=== PATIENT | male | born 1955 | race Caucasian/White ===

== ENCOUNTER 2021-02-19 09:58 | Emergency (ER) | payer MEDICARE, OTHER, SELFPAY ==
--- NOTE | 2021-02-19 09:59 | DI.US.S_ITS ---
PROCEDURE: US SCROTUM INDICATIONS: LARGE TESTICLE POST TRAUMA. COVID POSITIVE. TECHNIQUE: Real-time scanning was performed of the scrotum and testicles, with image documentation. Color and pulse Doppler interrogation was performed of both testicles. COMPARISON: None. FINDINGS: Right: Testicle is normal in size at 4.2 x 2.6 x 2.4 cm, and homogenous in echotexture. Epididymis is normal in overall size and morphology. No hydrocele or varicoceles. Overlying scrotal skin is normal in thickness. There is a large 5.7 x 4.6 x 2.8 cm cyst in the right scrotal sac separate from the scrotal contents with single thin septation Left: Testicle is normal in size at 4.1 x 3.4 x 2.0 cm, and homogeneous in echotexture. Epididymis is normal in overall size and morphology. No hydrocele or varicoceles. Overlying scrotal skin is normal in thickness. Doppler: Color and pulse Doppler demonstrate normal and symmetric arterial flow in both testicles. IMPRESSION: 1. Large right extratesticular septated cyst. Differential possibilities include sequelae of trauma such as old hematocele or spermatocele 2. No evidence of testicular injury or torsion Approved by: Ravi Thakkar M.D. on 02/19/2021 at 10:36
[2021-02-19 10:00] VITALS: BP 166/98; PULSE 77; RESP 15; TEMP 37; O2SAT 95; BMI 39.1
--- NOTE | 2021-02-19 10:06 | ED.GENADULT ---
HPI - General Adult General Chief complaint: Urogenital-Male Stated complaint: Enlarged Testicle. sent by [employer] Time Seen by Provider: 02/19/21 09:59 Source: patient Mode of arrival: Ambulatory History of Present Illness HPI narrative: Patient is a 65-year-old male who was sent to the emergency department by walk-in clinic for evaluation of a swollen right testicle. He thinks that the testicles been swollen for the past couple weeks. He also is COVID positive. Denies any urinary symptoms. No trauma. Is circumcised. No fevers. No abdominal pain. Related Data Home Medications Medication Instructions Recorded Confirmed albuterol sulfate 90 mcg/actuation INH PRN PRN #0 04/29/17 aerosol inhaler (Ventolin HFA) aspirin 81 mg tablet,delayed 81 mg PO QDAY #0 04/29/17 release carvedilol 25 mg tablet (Coreg) 25 mg PO BID #0 04/29/17 lisinopril 40 mg tablet 40 mg PO QDAY #0 04/29/17 loratadine 10 mg tablet 10 mg PO QPM #0 04/29/17 rosuvastatin 10 mg tablet (Crestor) 10 mg PO HS #0 04/29/17 Previous Rx's Medication Instructions Recorded diazepam 5 mg tablet (Valium) 5 mg PO Q8HP PRN #10 tab 04/29/17 meloxicam 7.5 mg tablet (Mobic) 7.5 mg PO BIDCC PRN #15 tab 04/29/17 Allergies Allergy/AdvReac Type Severity Reaction Status Date / Time hydrocodone [HYDROCODONE] Allergy Unknown Verified 02/19/21 10:04 No Known Drug Allergies Allergy Unknown Verified 02/19/21 10:04 [NO KNOWN DRUG ALLERGIES] Review of Systems Gastrointestinal Gastrointestinal: Reports system reviewed and no additional complaints, except as documented Genitourinary Genitourinary: Reports system reviewed and no additional complaints, except as documented and Reports as per HPI Integumentary/Breasts Skin/Breast: Reports system reviewed and no additional complaints, except as documented Hematologic/Lymphatic On Anticoagulants: No Patient History Medical History Chest pain Hyperglycemia 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 Social History Smoking Status: Unknown if ever smoked Smoking Status: Unknown if ever smoked alcohol intake frequency: 0-2 drinks per day Substance Use Type: does not use Exam Initial Vital Signs Initial Vital Signs: Vital Signs Temperature 98.6 F 02/19/21 10:00 Pulse Rate 77 02/19/21 10:00 Respiratory Rate 15 02/19/21 10:00 Blood Pressure 166/98 H 02/19/21 10:00 Pulse Oximetry 95 02/19/21 10:00 HENMT Head: normal to inspection and normocephalic GI Inspection: normal to inspection and non-distended Palpation: No tender Other: Circumcised, left testicle unremarkable, right testicle is enlarged however is not tender. Normal lie. Positive cremasteric reflex bilaterally. Skin General: no rashes or lesions noted Neuro General: patient alert, patient awake and moves all extremities Extrem General: capillary refill normal Course Orders Ordered: ED Orders 02/19/21 09:59 US scrotum Stat Vital Signs Vital signs: Vital Signs - 8 hr 02/19/21 10:00 Temperature 98.6 F Pulse Rate 77 Respiratory Rate 15 Blood Pressure 166/98 H Pulse Oximetry 95 Medical Decision Making Imaging Data Scrotal ultrasound: Radiologist's Impression: [place] [address] Ultrasound Report Signed Patient: Alen Buenrostro MR#: [id number] : 1955 Acct:[id number] Age/Sex: 65 / M Date of Service: 02/19/21 Loc: ED Accession Number: [id number] ?? Procedure: US scrotum Ordering Provider: Jesus Alberto Murphy D.O. PROCEDURE:? US SCROTUM ? INDICATIONS:? LARGE TESTICLE POST TRAUMA. COVID POSITIVE. ? TECHNIQUE:? Real-time scanning was performed of the scrotum and testicles, with image documentation.? Color and pulse Doppler interrogation was performed of both testicles.? ? COMPARISON:? None. ? FINDINGS:? ? Right:? Testicle is normal in size at 4.2 x 2.6 x 2.4 cm, and homogenous in echotexture.? Epididymis is normal in overall size and morphology.? No hydrocele or varicoceles.? Overlying scrotal skin is normal in thickness.? ? There is a large 5.7 x 4.6 x 2.8 cm cyst in the right scrotal sac separate from the scrotal contents with single thin septation ? Left:? Testicle is normal in size at 4.1 x 3.4 x 2.0 cm, and homogeneous in echotexture.? Epididymis is normal in overall size and morphology.? No hydrocele or varicoceles.? Overlying scrotal skin is normal in thickness.? ? Doppler:? Color and pulse Doppler demonstrate normal and symmetric arterial flow in both testicles.? ? IMPRESSION:? ? 1. Large right extratesticular septated cyst.? Differential possibilities include sequelae of trauma such as old hematocele or spermatocele ? 2. No evidence of testicular injury or torsion ? ? Approved by: Ravi Thakkar M.D. on 02/19/2021 at 10:36? MDM Narrative Medical decision making narrative: The ultrasound shows what appears to be a cyst in the right hemiscrotum. This does fit with his clinical presentation. No indication for antibiotics. Patient states that the cyst has improved since its initial onset however the plan will be is to have him follow-up with urology. He was given return precautions and follow-up instructions. He expressed understanding and agreement. Discharge Plan Departure Patient Disposition: Home Clinical Impression: Scrotal cyst Activity Restrictions/Additional Instructions: I do recommend that you contact the Urology Department at the number provided below for a follow-up. Continue to quarantine herself because of your COVID diagnosis. Return to the emergency department for any new or worsening symptoms Prescriptions: No Action loratadine 10 MG tablet 10 mg PO QPM Qty: 0 0RF albuterol sulfate [Ventolin HFA] 90 MCG/PUFF HFA aerosol inhaler INH PRN PRNQty: 0 0RF carvedilol [Coreg] 25 MG tablet 25 mg PO BID Qty: 0 0RF aspirin 81 MG tablet,delayed release (DR/EC) 81 mg PO QDAY Qty: 0 0RF lisinopril 40 MG tablet 40 mg PO QDAY Qty: 0 0RF rosuvastatin [Crestor] 10 MG tablet 10 mg PO HS Qty: 0 0RF meloxicam [Mobic] 7.5 MG tablet 7.5 mg PO BIDCC PRNQty: 15 0RF diazepam [Valium] 5 MG tablet 5 mg PO Q8HP PRNQty: 10 0RF Referrals: Arturo Franklin MD [Primary Care Provider] - Angeles Marin MD [Physician] -
[2021-02-19 12:21] VITALS: BP 166/95; PULSE 78; RESP 16; O2SAT 96
[2021-02-19 12:22] VITALS: BP 168/98; PULSE 75; RESP 18; O2SAT 95
== END 2021-02-19 12:23 | disposition home or self-care (01) ==
PROVIDERS: Emergency Provider Emergency Medicine
DX: L72.9 Follicular cyst of the skin and subcutaneous tissue, unspecified (principal)
CPT/HCPCS: 76870; 99281; 99283

== ENCOUNTER 2021-02-22 06:51 | Emergency (ER) | payer MEDICARE, OTHER, SELFPAY ==
[2021-02-22 07:04] VITALS: BP 116/74; PULSE 74; RESP 18; TEMP 37.2; O2SAT 97; BMI 30.2
--- NOTE | 2021-02-22 07:13 | ED.NAVMDI ---
HPI - Nausea/Vomiting/Diarrhea General Chief complaint: Nausea/Vomiting/Diarrhea Stated complaint: covid+ dehydrated/dry heaves Time Seen by Provider: 02/22/21 07:08 History of Present Illness HPI Narrative: 65-year-old male nonsmoker with history of hypertension and hyperlipidemia presents with a chief complaint dehydration with dry heaves for the past few days. He has been unable to keep anything down and has now become dizzy, weak and fatigued. He started developing subjective fevers and chills along with nausea and vomiting on and by Thursday had taken a COVID test which was positive. He was vaccinated with [employer] but is yet to have his booster Related Data Home Medications Medication Instructions Recorded Confirmed albuterol sulfate 90 mcg/actuation INH PRN PRN #0 04/29/17 aerosol inhaler (Ventolin HFA) aspirin 81 mg tablet,delayed 81 mg PO QDAY #0 04/29/17 release carvedilol 25 mg tablet (Coreg) 25 mg PO BID #0 04/29/17 lisinopril 40 mg tablet 40 mg PO QDAY #0 04/29/17 loratadine 10 mg tablet 10 mg PO QPM #0 04/29/17 rosuvastatin 10 mg tablet (Crestor) 10 mg PO HS #0 04/29/17 Previous Rx's Medication Instructions Recorded diazepam 5 mg tablet (Valium) 5 mg PO Q8HP PRN #10 tab 04/29/17 meloxicam 7.5 mg tablet (Mobic) 7.5 mg PO BIDCC PRN #15 tab 04/29/17 ondansetron 4 mg disintegrating 4 mg PO TID-QID PRN #10 tab 02/22/21 tablet Allergies Allergy/AdvReac Type Severity Reaction Status Date / Time hydrocodone [HYDROCODONE] Allergy Unknown Verified 02/19/21 10:04 No Known Drug Allergies Allergy Unknown Verified 02/19/21 10:04 [NO KNOWN DRUG ALLERGIES] Review of Systems Review of Systems Narrative: GENERAL: See HPI. HEENT: Denies sinus pain, ear pain, sore throat, difficulty swallowing, dizziness. RESPIRATORY: Denies dyspnea, cough, wheezing, hemoptysis, sputum. CARDIOVASCULAR: Denies chest pain, palpitations, orthopnea, edema, GASTROINTESTINAL: See HPI : Denies dysuria, frequency, incontinence, hematuria, urinary retention. MUSCULOSKELETAL: denies weakness, joint pain, or bony pain SKIN: Denies rash, skin lesions, or other NEUROLOGIC: Denies weakness, headache, numbness, change in speech, confusion, seizures, incoordination. PSYCHIATRIC: No concerning psychosocial issues. 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 Well-developed patient, in mild distress. HEAD: Atraumatic. Normocephalic. EYES: Pupils equal round and reactive. Extraocular motions intact. No scleral icterus. No injection or drainage. ENT: Moist mucous membranes, Nose without bleeding, purulent drainage. Throat without erythema, tonsillar hypertrophy or exudate. Airway patent. NECK: Trachea midline. Non tender CARDIOVASCULAR: Regular rate and rhythm without murmurs, gallops, or rubs. RESPIRATORY: Clear to auscultation. Breath sounds equal bilaterally. No wheezes, rales, or rhonchi. Of breathing, use of accessory muscles, or hypoxemia GASTROINTESTINAL: Abdomen soft, non-tender, nondistended. EXTREMITIES: No edema or joint tenderness. BACK: Nontender without deformity or crepitance. No flank tenderness. NEURO: AOx3. SKIN: Poor skin turgor, No rash or erythema of visible areas Initial Vital Signs Initial Vital Signs: Vital Signs Temperature 99 F 02/22/21 07:04 Pulse Rate 74 02/22/21 07:04 Respiratory Rate 18 02/22/21 07:04 Blood Pressure 116/74 02/22/21 07:04 Pulse Oximetry 97 02/22/21 07:04 Course Orders Ordered: Discontinued Medications Sodium Chloride (Normal Saline 0.9%) 1,000 mls @ 1,000 mls/hr IV BOLUS ONE Stop: 02/22/21 08:12 Last Infusion: 02/22/21 08:45 Dose: 0 mls/hr Documented by: Admin: 02/22/21 07:22 Dose: 1,000 mls/hr Documented by: VU Sodium Chloride (Normal Saline 0.9%) 1,000 mls @ 1,000 mls/hr IV BOLUS PRN PRN Reason: Fluid replacement Last Infusion: 02/22/21 09:19 Dose: 0 mls/hr Documented by: Admin: 02/22/21 08:15 Dose: 1,000 mls/hr Documented by: VU Ondansetron HCl (Ondansetron 4 Mg/2 Ml Inj) 4 mg IV NOW ONE Stop: 02/22/21 07:14 Last Admin: 02/22/21 07:26 Dose: 4 mg Documented by: VU Pantoprazole Sodium (Pantoprazole 40 Mg Vial) 40 mg IV NOW ONE Stop: 02/22/21 07:14 Last Admin: 02/22/21 07:26 Dose: 40 mg Documented by: VU Reevaluation(s) Reevaluation #1: Patient already feeling better after above-stated therapies Time: 08:11 Vital Signs Vital signs: Vital Signs - 8 hr 02/22/21 08:46 02/22/21 08:48 02/22/21 09:00 Pulse Rate 76 73 71 Respiratory Rate 18 18 Blood Pressure 114/62 103/63 Pulse Oximetry 97 96 96 02/22/21 09:30 Pulse Rate 71 Respiratory Rate 17 Blood Pressure 105/60 Pulse Oximetry 96 MDM - Nausea/Vomiting/Diarrhea Lab Data Result diagrams: 02/22/21 07:10 02/22/21 07:10 Labs: Lab Results 02/22/21 02/22/21 Range/Units 07:10 07:10 WBC 4.0 L (4.5-11.0) X10^3/uL RBC 5.23 (4.5-5.9) X10^6/uL Hgb 16.1 (13.5-17.5) g/dL Hct 46.0 (41-53) % MCV 87.9 (80-100) fL MCH 30.8 (26-34) PG MCHC 35.1 (30-36) % RDW 13.4 (11.6-14.8) % Plt Count 99 L (150-400) X10^3/uL Neut % (Auto) 75.7 H (50-75) % Lymph % (Auto) 14.2 L (25-40) % [place] % (Auto) 9.8 (3-14) % Eos % (Auto) 0.0 L (2-4) % Baso % (Auto) 0.3 (0-2) % Neut # (Auto) 3000 (6491-7782) /uL Lymph # (Auto) 600 L (1070-4669) /uL [place] # (Auto) 400 (0-900) /uL Eos # (Auto) 0 (0-450) /uL Baso # (Auto) 0 (0-100) /uL Sodium 127 L (137-145) mmol/L Potassium 4.0 (3.4-5.1) mmol/L Chloride 99 (98-107) mmol/L Carbon Dioxide 22 (22-32) mmol/L BUN 16 (9-20) mg/dL Creatinine 0.87 (0.66-1.25) mg/dL Estimated GFR > 60.0 (>60) mL/min BUN/Creatinine Ratio 18.4 (6-22) Glucose 126 H (80-110) mg/dL Calcium 8.8 (8.4-10.2) mg/dL Magnesium 2.1 (1.6-2.3) mg/dL Total Bilirubin 0.8 (0.2-1.3) mg/dL AST 39 (17-59) IU/L ALT 39 (<50) IU/L Alkaline Phosphatase 47 (38-126) U/L Total Protein 7.3 (6.3-8.2) g/dL Albumin 4.1 (3.5-5.0) g/dL Globulin 3.2 (1.7-4.1) g/dL Albumin/Globulin Ratio 1.3 (1.0-2.8) MDM Narrative Medical decision making narrative: Patient with reassuring history and physical. He feels much better after fluids and other above-stated therapies. He is COVID positive but demonstrates no increased work of breathing, hypoxemia or need for admission. He has been given return precautions and questions have been answered to his apparent satisfaction Discharge Plan Departure Patient Disposition: Home Clinical Impression: COVID-19, Vomiting Instructions: DI for Vomiting -- Adult, DI for COVID-19 (Suspected or Confirmed ) Activity Restrictions/Additional Instructions: *You have been diagnosed with [ COVID-19] *What to do: * per recommendations from the CDC and the [facility] Department of Health * stay home except to get medical care. Restrict activities outside your home, except for getting medical care. Do not go to work, school, or public areas. Avoid using public transportation, ride sharing, or taxis. * separate yourself from other people in your home. * call ahead before visiting your doctor * Wear a facemask * Cover your coughs and sneezes * Clean your hands often * Avoid sharing household items * Clean all high-touch services every day * Monitor your symptoms and seek prompt medical attention if your illness is worsening, particularly with difficulty in breathing. You may discontinue your isolation when: 1. You have been fever-free for at least 24 hours without the use of fever reducing medication, AND 2. Your symptoms are getting better 3. At least 10 days have passed since symptoms first appeared Individuals with laboratory confirmed COVID-19 who have not had any symptoms may discontinue home isolation when at least 10 days have passed since the date of their first COVID-19 diagnostic test and have had no subsequent illness Regarding the nausea and vomiting component of your symptoms. We would recommend you employed a clear liquid diet for the next 24-48 hours and then advance slowly as tolerated. Consider starting with a BRAT Diet (bananas, rice, apples, toast). Prescriptions: New ondansetron 4 mg tablet,disintegrating 4 mg PO TID-QID PRN (Reason: nausea and vomiting) Qty: 10 0RF No Action loratadine 10 MG tablet 10 mg PO QPM Qty: 0 0RF albuterol sulfate [Ventolin HFA] 90 MCG/PUFF HFA aerosol inhaler INH PRN PRNQty: 0 0RF carvedilol [Coreg] 25 MG tablet 25 mg PO BID Qty: 0 0RF aspirin 81 MG tablet,delayed release (DR/EC) 81 mg PO QDAY Qty: 0 0RF lisinopril 40 MG tablet 40 mg PO QDAY Qty: 0 0RF rosuvastatin [Crestor] 10 MG tablet 10 mg PO HS Qty: 0 0RF meloxicam [Mobic] 7.5 MG tablet 7.5 mg PO BIDCC PRNQty: 15 0RF diazepam [Valium] 5 MG tablet 5 mg PO Q8HP PRNQty: 10 0RF Referrals: Chaya Douglas PA-C [Primary Care Provider] -
[2021-02-22] MEDS: SODIUM CHLORIDE 0.9% 1,000 ML 1000 ML IV ×2 (07:22→08:15)
[2021-02-22] MEDS: ONDANSETRON 4 MG/2 ML INJ IV (07:26)
[2021-02-22] MEDS: PANTOPRAZOLE 40 MG VIAL IV (07:26)
[2021-02-22 07:34] LABS: Add Manual Diff / Slide Review NO; Basophils Absolute Auto 0 /uL (0-100); Basophils Percent Auto 0.3 % (0-2); Eosinophils Absolute Auto 0 /uL (0-450); Hemoglobin 16.1 g/dL (13.5-17.5); Lymphocytes Absolute Auto 600 /uL (1100-4500); Lymphocytes Percent Auto 14.2 % (25-40); Mean Corpuscular HGB Conc 35.1 % (30-36); Mean Corpuscular Hemoglobin 30.8 PG (26-34); Mean Corpuscular Volume 87.9 fL (80-100); Monocytes Absolute Auto 400 /uL (0-900); Monocytes Percent Auto 9.8 % (3-14); Neutrophils Absolute Auto 3000 /uL (1500-7000); Neutrophils Percent Auto 75.7 % (50-75); Platelet Count 99 X10^3/uL (150-400); Red Blood Cell Count 5.23 X10^6/uL (4.5-5.9); Red Cell Distribution Width 13.4 % (11.6-14.8)
[2021-02-22 07:42] LABS: Alanine Aminotransferase 39 IU/L (<50); Albumin 4.1 g/dL (3.5-5.0); Albumin Globulin Ratio 1.3 (1.0-2.8); Alkaline Phosphatase 47 U/L (38-126); Aspartate Aminotransferase 39 IU/L (17-59); BUN Creatinine Ratio 18.4 (6-22); Bilirubin Total 0.8 mg/dL (0.2-1.3); Blood Urea Nitrogen 16 mg/dL (9-20); Calcium 8.8 mg/dL (8.4-10.2); Carbon Dioxide 22 mmol/L (22-32); Chloride 99 mmol/L (98-107); Estimated Glomerular Filt Rate > 60.0 mL/min (>60); Globulin 3.2 g/dL (1.7-4.1); Glucose 126 mg/dL (80-110); HEMOLYSIS 16 (0-50); Magnesium 2.1 mg/dL (1.6-2.3); Sodium 127 mmol/L (137-145); Total Protein 7.3 g/dL (6.3-8.2)
[2021-02-22 08:46] VITALS: BP 114/62; PULSE 76; RESP 18; O2SAT 97
--- NOTE | 2021-02-22 08:46 | PC.NURSE ---
tolerating ice chips without dry heaves or vomiting, symptoms improved from triage
[2021-02-22 08:48] VITALS: PULSE 73; O2SAT 96
[2021-02-22 09:00] VITALS: BP 103/63; PULSE 71; RESP 18; O2SAT 96
[2021-02-22 09:30] VITALS: BP 105/60; PULSE 71; RESP 17; O2SAT 96
== END 2021-02-22 10:00 | disposition home or self-care (01) ==
PROVIDERS: Emergency Provider Emergency Medicine; PCP Physician Assistant Medical
DX: U07.1 COVID-19 (principal); R11.2 Nausea with vomiting, unspecified
CPT/HCPCS: 36415; 80053; 83735; 85025; 96361; 96374; 96375; 99284; C9113; J2405

== ENCOUNTER → 2021-05-20 10:59 | Outpatient (CLI) | payer MEDICARE, OTHER, SELFPAY ==
[2021-05-20 14:34] LABS: COVID19 -Nasal RAPID Negative (Negative)
== END ==
PROVIDERS: PCP Physician Assistant Medical; Visit Provider Urology
DX: Z20.822 Contact with and (suspected) exposure to COVID-19 (principal)
CPT/HCPCS: 87635; C9803

== ENCOUNTER 2021-05-23 06:31 | Day surgery (SDC) | payer MEDICARE, OTHER, SELFPAY ==
[2021-05-22 10:02] VITALS: BMI 42.5
[2021-05-23] VITALS (8 sets, daily range): BP systolic 139–152; BP diastolic 80–88; PULSE 65–75; RESP 14–22; TEMP 36.3–36.7; O2SAT 94–98; BMI 42.5
--- NOTE | 2021-05-23 | PATH_ITS ---
[facility] Accession Number: [id number] . 01 Material submitted: . body - RIGHT SPERMATOCELE . 02 Diagnosis: Right Spermatocele, Excision: Histologic features consistent with spermatocele (6.6 x 5.6 x 4.2 cm); negative for atypia or malignancy. MRV 05/27/2021 1154 Local . 02 Electronically signed: . Natalie Shields MD, Pathologist NPI- [id number] . 01 Gross description: . Received in one part: . Received in formalin labeled Porter Alen, designated right spermatocele, is a 6.6 x 5.6 x 4.2 cm intact portion of semitranslucent thin-walled cystic tissue. The outer surface contains focal adhesions and is inked black. Sectioning reveals a smooth-lined unilocular cystic cut surface filled with cloudy, watery fluid. No areas of thickening or other lesions are identified. Referral Agent sections are submitted in cassette A1. ([id number]) /FRR 05/26/2021 1623 Local . 02 Pathologist provided ICD-10: N43.41 . 02 CPT . 130827 Specimen Comment: A courtesy copy of this report has been sent to [phone] Performed at: 01 [facility] [address], [place], [place] [id number] MD Kameron Parker MD Phone: [phone] Performed at: 02 [facility] [address] [place], [place] [id number] MD Colette Tadeo MD Phone: [phone]
[2021-05-23] MEDS: LACTATED RINGERS 1,000 ML 42 ML IV (07:16)
--- NOTE | 2021-05-23 07:17 | SUR.OPER ---
Supine on padded OR bed, head on pillow, arms secured on padded arm boards at <90 degrees abduction, legs uncrossed, safety belt at thigh, tape over blanket over lower legs.
--- NOTE | 2021-05-23 07:41 | PM.PREOP ---
Pre-operative Note COVID-19 COVID-19 status: Negative Result date/Date tested (Pos, Neg/Pending): 05/20/21 Criteria for continued procedure: Expected advancement of disease process and Delay expected to result in less-positive ultimate med/surg outcome Interval Note History & Physical reviewed/Exam performed by Physician: Yes Changes to H&P: No
[2021-05-23] MEDS: CEFAZOLIN 2 GM/20 ML SYRINGE IV (07:55)
[2021-05-23] MEDS: BUPIVACAINE 0.25% (PF) VIAL 30 ML INJ (08:09)
--- NOTE | 2021-05-23 09:09 | PM.OP.1 ---
Procedure & Clinicians Procedure: Right spermatocelectomy Same procedure as scheduled: Yes Indications: This 65-year-old male came with complaint of right hemiscrotal enlargement he had scrotal ultrasound which revealed findings consistent with a somewhat septated spermatocele. He presents this time for removal of his spermatocele BS spermatocele ectomy. He has found this uncomfortable and wishes it removed Surgeon: Alberto Payton Click Yes if Unassisted: Yes Anesthesia Type: General Operative Notes Findings: The right hemiscrotal contents were normal save the spermatocele which did have some lobulation and perhaps septation. It had a a vascular wall and what appeared to be opalescent type fluid. It was removed intact. Patient did have some induration and condensation within the epididymis. This were findings consistent with vasectomy. There were no other abnormalities noted and there was no hydrocele. Closure Type: primary Specimen(s): other (Right spermatocele intact) Prosthetic devices, grafts, tissues, transplants, or devices: None Blood products transfused: none Procedure in detail: After informed consent was obtained, the patient was identified, and brought to the operating room. Patient was then placed in the supine position and anesthesia was induced and maintained. The patient was then shaved, prepped, draped and prepared for right hemiscrotal surgery in a sterile fashion. After prepping draping and ensuring an adequate level of anesthesia a transverse incision was made in the scrotum and carried down through the layers of the dartos. The testis was delivered. And the investing layers were dissected off of the obvious spermatocele. The spermatocele then was dissected free from its investing tissues the cord and cord structures were stacked it off of the spermatocele down to its ?neck? where it joined the epididymis. The neck was then tied or ligated with 2 0 Vicryl on the patient's side and the specimen side. The intervening bridge of tissue was then divided sharply with the scalpel. The specimen was sent to pathology in formalin. The testes and wounds were inspected for hemostasis. There were found to be good the wound was irrigated. The cord was infiltrated with 10 cc of 0.25% plain Marcaine. The testis was returned to the scrotum the dartos was reapproximated in 2 layers the inner layer with running 2 0 Vicryl and the outer layer with running 3-0 Monocryl. Skin edges were reapproximated with interrupted vertical mattress of 2-0 chromic. The skin was then infiltrated with 0.25% plain Marcaine. Hemostasis appeared to be good. Bacitracin, Telfa, fluffs and scrotal support were applied and the patient was awakened. He was then taken to the postanesthesia care unit having tolerated the procedure well there were no complications. Patient will be discharged to home to follow up my office in approximately 10 days. Complications: none Post-operative Condition: stable Disposition: PACU Plan for aftercare: Discharged home after awake and alert follow-up from my office in approximately 10 days
--- NOTE | 2021-05-23 09:49 | SUR.PHASEI ---
Patient diaphoretic but denies pain or nausea. VSS. Blood sugar 113.
== END 2021-05-23 10:25 | disposition home or self-care (01) ==
PROVIDERS: PCP Physician Assistant Medical; Referring Provider Urology; Visit Provider Urology
PROC: (CPT 54840; principal; 2021-05-23 07:45)
DX: N43.41 Spermatocele of epididymis, single (principal)
CPT/HCPCS: 54840; 82962; J0690; J1100; J1885; J2250; J3010

== ENCOUNTER 2021-05-28 06:27 | Emergency (ER) | payer MEDICARE, OTHER, SELFPAY ==
[2021-05-28] VITALS (17 sets, daily range): BP systolic 107–172; BP diastolic 56–87; PULSE 74–154; RESP 24–25; TEMP 37.1–39.8; O2SAT 94–97; BMI 35.7
--- NOTE | 2021-05-28 06:59 | DI.RAD.S_ITS ---
PROCEDURE: XR CHEST 1V INDICATIONS: suspected sepsis TECHNIQUE: One view of the chest was acquired. COMPARISON: [facility], , CHEST 1 VIEW, 02/22/2017, 20:13. FINDINGS: Surgical changes and devices: None. Lungs and pleura: Focal opacity noted in the right lung base. No pleural effusions or pneumothorax. Mediastinum: Mediastinal contours appear normal. Heart size is normal. Bones and chest wall: No suspicious bony lesions. Overlying soft tissues appear unremarkable. IMPRESSION: Right basilar pneumonia. Dictated by: Hermelinda Washington MD, PhD on 05/28/2021 at 8:29 Approved by: Hermelinda Washington MD, PhD on 05/28/2021 at 8:30
[2021-05-28 07:06] LABS: Add Manual Diff / Slide Review NO; Basophils Absolute Auto 0 /uL (0-100); Basophils Percent Auto 0.3 % (0-2); Eosinophils Absolute Auto 0 /uL (0-450); Eosinophils Percent Auto 0.2 % (2-4); Hematocrit 43.1 % (41-53); Lymphocytes Absolute Auto 500 /uL (1100-4500); Lymphocytes Percent Auto 4.6 % (25-40); Mean Corpuscular HGB Conc 34.8 % (30-36); Mean Corpuscular Hemoglobin 31.2 PG (26-34); Mean Corpuscular Volume 89.5 fL (80-100); Monocytes Absolute Auto 1100 /uL (0-900); Monocytes Percent Auto 10.6 % (3-14); Neutrophils Absolute Auto 8500 /uL (1500-7000); Neutrophils Percent Auto 84.3 % (50-75); Platelet Count 155 X10^3/uL (150-400); Red Blood Cell Count 4.82 X10^6/uL (4.5-5.9); Red Cell Distribution Width 13.9 % (11.6-14.8)
--- NOTE | 2021-05-28 07:15 | ED_ITS ---
HPI - General Adult General Chief complaint: Fever Stated complaint: d/v cant sleep Time Seen by Provider: 05/28/21 07:02 Source: patient Mode of arrival: Ambulatory Limitations: no limitations History of Present Illness HPI narrative: 65-year-old male here for evaluation of nausea and vomiting and generally not fe eling well and inability to sleep. Approximately 4 days ago patient underwent a outpatient procedure to have a cyst removed from his right hemiscrotum/testicle. He was discharged home the same day. No antibiotics administered upon discharge. He states that since then he has had issues with nausea and vomiting and not feeling well. Also having diarrhea. No urinary symptoms very does state that his urine is dark. No chest pain. No shortness of breath. No abdominal pain except around the time where he is vomiting. No skin rashes. He is icing the surgical area. Took Tylenol last evening but nothing since then. Related Data Home Medications Medication Instructions Recorded Confirmed carvedilol 25 mg tablet (Coreg) 25 mg PO BID #0 04/29/17 05/23/21 lisinopril 40 mg tablet 40 mg PO QDAY #0 04/29/17 05/23/21 rosuvastatin 10 mg tablet (Crestor) 10 mg PO HS #0 04/29/17 05/23/21 amlodipine 5 mg tablet 5 mg PO DAILY 04/04/21 05/23/21 aspirin 81 mg capsule 81 mg PO DAILY 05/22/21 05/23/21 loratadine 10 mg tablet 10 mg PO DAILY 05/23/21 05/23/21 Previous Rx's Medication Instructions Recorded doxycycline hyclate 100 mg capsule 100 mg PO BID 7 Days #14 cap 05/28/21 ondansetron 4 mg disintegrating 4 mg PO QID PRN #12 tab 05/28/21 tablet Allergies Allergy/AdvReac Type Severity Reaction Status Date / Time hydrocodone [HYDROCODONE] Allergy Unknown Verified 05/23/21 07:05 Review of Systems Review of Systems ROS Unobtainable: All systems reviewed & are unremarkable except as noted in HPI and below Constitutional Constitutional: Reports fever(s), Denies headache(s) and Reports malaise ENT Ears, Nose, Mouth, and Throat: Denies headache(s) and Denies sore throat Cardiovascular Cardiovascular: Denies chest pain and Denies dyspnea Respiratory Respiratory: Denies cough and Denies dyspnea Gastrointestinal Gastrointestinal: Denies abdominal pain, Reports diarrhea, Reports nausea and Reports vomiting Genitourinary Genitourinary: Reports system reviewed and no additional complaints, except as documented and Reports as per HPI Musculoskeletal Musculoskeletal: Reports system reviewed and no additional complaints, except as documented Integumentary/Breasts Skin/Breast: Denies rash Neurologic Neurologic: Denies headache(s) Hematologic/Lymphatic On Anticoagulants: No Allergic/Immunologic Allergic/Immunologic: Reports system reviewed and no additional complaints, except as documented Patient History Medical History CAD (coronary artery disease) Chest pain COVID-19 virus infection (02/2021) Depression Diverticular disease High blood pressure HLD (hyperlipidemia) Hyperglycemia 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 Myocardial infarction Spermatocele of epididymis, single Surgical History (Updated 05/22/21 @ 10:13 by Sandra Cortez RN) Hx of heart artery stent (~2006) Social History marital status: household members: spouse Smoking Status: Former smoker alcohol intake: current Smoking Status: Former smoker alcohol intake frequency: 0-2 drinks per day Substance Use Type: marijuana Exam Initial Vital Signs Initial Vital Signs: Vital Signs Temperature 103.6 F H 05/28/21 06:40 Pulse Rate 95 H 05/28/21 06:40 Respiratory Rate 25 H 05/28/21 06:40 Blood Pressure 151/81 H 05/28/21 06:40 Pulse Oximetry 96 05/28/21 06:40 Const General: No ill appearing HENMT Head: normal to inspection and normocephalic Eyes General: appearance normal, both eyes and all related structures Neck Neck: normal visual inspection Chest Chest: normal inspection of the chest Resp Effort & Inspection: normal respiratory effort Auscultation: clear to auscultation bilaterally Cardio Rate: regular rate Rhythm: regular rhythm GI Palpation: soft, No firm, No guarding and No tender Other: Right hemiscrotal Bruising consistent with his postoperative status. Surgical sutures appear well. No drainage. No crepitus. Skin Other: Bruising around the right hemiscrotum otherwise no skin rashes Neuro General: patient alert, patient awake, patient oriented x3 and moves all extremities Extrem General: normal to inspection and capillary refill normal Psych Appearance: grossly normal and well kempt Scores GCS Center Line coma scale eye opening: Spontaneous Pa coma scale verbal response: Orientated Pa coma scale motor response: Obey commands Pa coma scale total score: 15 Course Orders Ordered: ED Orders 05/28/21 08:02 EKG-12 Lead Stat 05/28/21 08:29 COVID19 -Nasal swab/Pre-Proc Stat 05/28/21 10:13 Urine Culture Stat Urine Microscopic Stat Discontinued Medications Acetaminophen (Acetaminophen 325 Mg Tablet) 650 mg PO NOW ONE Stop: 05/28/21 07:17 Last Admin: 05/28/21 07:29 Dose: 650 mg Documented by: FAROOQ Sodium Chloride (Normal Saline 0.9%) 1,000 mls @ 1,000 mls/hr IV BOLUS ONE Stop: 05/28/21 07:58 Last Infusion: 05/28/21 09:50 Dose: 0 mls/hr Documented by: Admin: 05/28/21 07:27 Dose: 1,000 mls/hr Documented by: FAROOQ Ceftriaxone Sodium 1,000 mg/ (Sodium Chloride) 100 mls @ 200 mls/hr IV NOW ONE Stop: 05/28/21 07:08 Last Infusion: 05/28/21 09:42 Dose: 0 mls/hr Documented by: Admin: 05/28/21 07:30 Dose: 200 mls/hr Documented by: FAROOQ Vancomycin HCl/Dextrose (Vancomycin) 2,000 mg in 400 mls @ 200 mls/hr IV NOW ONE Stop: 05/28/21 09:42 Last Infusion: 05/28/21 11:52 Dose: 0 mls/hr Documented by: Admin: 05/28/21 09:44 Dose: 200 mls/hr Documented by: FAROOQ Vital Signs Vital signs: Vital Signs - 8 hr 05/28/21 09:00 05/28/21 09:30 05/28/21 10:00 Pulse Rate 76 74 84 Blood Pressure 107/56 L 123/68 Pulse Oximetry 94 95 96 05/28/21 10:01 05/28/21 10:30 05/28/21 11:00 Pulse Rate 154 H 77 75 Blood Pressure 134/69 117/66 127/67 Pulse Oximetry 96 96 96 05/28/21 11:30 05/28/21 12:00 05/28/21 12:30 Pulse Rate 82 84 90 Blood Pressure 147/69 H 165/87 H 172/79 H Pulse Oximetry 97 96 Medical Decision Making Medical Records Medical records reviewed: Yes I reviewed the patient's medical records. Lab Data Lab results reviewed: Yes I reviewed the patient's lab results. Result diagrams: 05/28/21 06:50 05/28/21 06:50 Labs: Lab Results 05/28/21 05/28/21 05/28/21 Range/Units 06:50 06:50 06:50 WBC 10.0 (4.5-11.0) X10^3/uL RBC 4.82 (4.5-5.9) X10^6/uL Hgb 15.0 (13.5-17.5) g/dL Hct 43.1 (41-53) % MCV 89.5 (80-100) fL MCH 31.2 (26-34) PG MCHC 34.8 (30-36) % RDW 13.9 (11.6-14.8) % Plt Count 155 (150-400) X10^3/uL Neut % (Auto) 84.3 H (50-75) % Lymph % (Auto) 4.6 L (25-40) % [place] % (Auto) 10.6 (3-14) % Eos % (Auto) 0.2 L (2-4) % Baso % (Auto) 0.3 (0-2) % Neut # (Auto) 8500 H (2490-3813) /uL Lymph # (Auto) 500 L (3015-9725) /uL [place] # (Auto) 1100 H (0-900) /uL Eos # (Auto) 0 (0-450) /uL Baso # (Auto) 0 (0-100) /uL Sodium 128 L (137-145) mmol/L Potassium 3.9 (3.4-5.1) mmol/L Chloride 99 (98-107) mmol/L Carbon Dioxide 19 L (22-32) mmol/L BUN 13 (9-20) mg/dL Creatinine 0.80 (0.66-1.25) mg/dL Estimated GFR > 60.0 (>60) mL/min BUN/Creatinine Ratio 16.3 (6-22) Glucose 141 H (80-110) mg/dL Lactate 0.8 (0.7-2.1) mmol/L Calcium 8.9 (8.4-10.2) mg/dL Total Bilirubin 1.5 H (0.2-1.3) mg/dL AST 63 H (17-59) IU/L ALT 98 H (<50) IU/L Alkaline Phosphatase 57 (38-126) U/L Total Protein 7.6 (6.3-8.2) g/dL Albumin 4.1 (3.5-5.0) g/dL Globulin 3.5 (1.7-4.1) g/dL Albumin/Globulin Ratio 1.2 (1.0-2.8) Lipase 66 (23-300) U/L Procalcitonin 0.10 (<0.5) ng/mL Urine RBC (0-5/HPF) Urine WBC (0-5/HPF) Ur Squamous Epith Cells (0-5/HPF) Urine Bacteria (None) Hyaline Casts (None) Granular Casts (None) Urine Mucus (Negative) Ur Culture Indicated? SARS-CoV-2 (PCR) (Negative) 05/28/21 05/28/21 Range/Units 08:29 10:13 WBC (4.5-11.0) X10^3/uL RBC (4.5-5.9) X10^6/uL Hgb (13.5-17.5) g/dL Hct (41-53) % MCV (80-100) fL MCH (26-34) PG MCHC (30-36) % RDW (11.6-14.8) % Plt Count (150-400) X10^3/uL Neut % (Auto) (50-75) % Lymph % (Auto) (25-40) % [place] % (Auto) (3-14) % Eos % (Auto) (2-4) % Baso % (Auto) (0-2) % Neut # (Auto) (8186-3871) /uL Lymph # (Auto) (9923-1256) /uL [place] # (Auto) (0-900) /uL Eos # (Auto) (0-450) /uL Baso # (Auto) (0-100) /uL Sodium (137-145) mmol/L Potassium (3.4-5.1) mmol/L Chloride (98-107) mmol/L Carbon Dioxide (22-32) mmol/L BUN (9-20) mg/dL Creatinine (0.66-1.25) mg/dL Estimated GFR (>60) mL/min BUN/Creatinine Ratio (6-22) Glucose (80-110) mg/dL Lactate (0.7-2.1) mmol/L Calcium (8.4-10.2) mg/dL Total Bilirubin (0.2-1.3) mg/dL AST (17-59) IU/L ALT (<50) IU/L Alkaline Phosphatase (38-126) U/L Total Protein (6.3-8.2) g/dL Albumin (3.5-5.0) g/dL Globulin (1.7-4.1) g/dL Albumin/Globulin Ratio (1.0-2.8) Lipase (23-300) U/L Procalcitonin (<0.5) ng/mL Urine RBC 1-5/hpf (0-5/HPF) Urine WBC 1-5/hpf (0-5/HPF) Ur Squamous Epith Cells 0-1 /hpf (0-5/HPF) Urine Bacteria Few (2-10) H (None) Hyaline Casts 0-1/lpf (None) Granular Casts 0-1/lpf (None) Urine Mucus 2+ H (Negative) Ur Culture Indicated? Cult not indicated SARS-CoV-2 (PCR) Negative (Negative) Urine Dip Bedside Urine Glucose Negative Bedside Urine Bilirubin - Negative Bedside Urine Ketone +++ 80 Urine Specific [place] 1.030 Bedside Urine Occult Blood +++ Bedside Urine pH 6.0 Bedside Urine Protein ++ 100 Bedside Urine Urobilinogen +/- 1mg Bedside Urine Nitrite - Negative Bedside Urine Leukocytes - Negative Esterase Point of care testing: Urine Dip Bedside Urine Glucose Negative Bedside Urine Bilirubin - Negative Bedside Urine Ketone +++ 80 Urine Specific [place] 1.030 Bedside Urine Occult Blood +++ Bedside Urine pH 6.0 Bedside Urine Protein ++ 100 Bedside Urine Urobilinogen +/- 1mg Bedside Urine Nitrite - Negative Bedside Urine Leukocytes - Negative Esterase Imaging Data Chest x-ray: Radiologist's Impression: [address] [address] XRay Report Signed Patient: Alen Buenrostro MR#: [id number] : 1955 Acct:[id number] Age/Sex: 65 / M Date of Service: 05/28/21 Loc: ED Accession Number: [id number] ?? Procedure: XR chest 1V Ordering Provider: Shahriar Rosen D.O. PROCEDURE:? XR CHEST 1V ? INDICATIONS:? suspected sepsis ? TECHNIQUE:? One view of the chest was acquired.? ? COMPARISON:? [facility], CHEST 1 VIEW, 02/22/2017, 20:13. ? FINDINGS:? ? Surgical changes and devices:? None.? ? Lungs and pleura:? Focal opacity noted in the right lung base.? No pleural effusions or pneumothorax.? ? Mediastinum:? Mediastinal contours appear normal.? Heart size is normal.? ? Bones and chest wall:? No suspicious bony lesions.? Overlying soft tissues appear unremarkable.? ? IMPRESSION:? Right basilar pneumonia. ? ? Dictated by: Hermelinda Washington MD, PhD on 05/28/2021 at 8:29 ? ? Approved by: Hermelinda Washington MD, PhD on 05/28/2021 at 8:30?? ECG Data Attestation: I personally reviewed and interpreted this ECG as follows: Interpretation: Sinus rhythm Ventricular rate 86 Normal axis Normal QRS Normal QTC No ST T wave changes MDM Narrative Medical decision making narrative: After fluids and Tylenol patient states that he feels much better. The surgical site on his right hemiscrotum appears well. There is no signs of infection. No crepitus. No drainage. Chest x-ray does show concerns for right-sided pneumonia. Unsure if this is related to his general anesthesia/intubation or potentially aspiration given the fact that he has had some vomiting. Given his presentation I would treat this like a pneumonia. Was given IV antibiotics here however will send home with p.o. antibiotics. He is tolerating oral intake. Had a discussion with him regarding being admitted to the hospital given his presenting vital signs and his labs verses discharged home. Patient states he would like to be discharged home since he is feeling much better. Prescription for antibiotics was sent to the pharmacy of his choice. He was given very strict return precautions. He expressed understanding and agreement. Blood cultures were obtained. Patient not hypotensive, not altered. Not dehydrated so 30 cc/kilogram fluid not administered. Discharge Plan Departure Patient Disposition: Home Clinical Impression: Pneumonia Instructions: DI for Pneumonia -- Adult Activity Restrictions/Additional Instructions: We do need to start you on antibiotics so a prescription for antibiotics and nausea medication was transmitted to [email or web address]. Please take it as directed. Follow all of the postoperative instructions given to you by the urologist. Return to the emergency department for any new or worsening symptoms. Prescriptions: New doxycycline hyclate 100 mg capsule 100 mg PO BID 7 Days Qty: 14 0RF ondansetron 4 mg tablet,disintegrating 4 mg PO QID PRN (Reason: nausea and vomiting) Qty: 12 0RF No Action carvedilol [Coreg] 25 MG tablet 25 mg PO BID Qty: 0 0RF lisinopril 40 MG tablet 40 mg PO QDAY Qty: 0 0RF rosuvastatin [Crestor] 10 MG tablet 10 mg PO HS Qty: 0 0RF aspirin 81 mg Capsule 81 mg PO DAILY 0RF loratadine 10 mg tablet 10 mg PO DAILY 0RF amlodipine 5 mg tablet 5 mg PO DAILY 0RF Referrals: Chaya Douglas PA-C [Primary Care Provider] -
[2021-05-28 07:18] LABS: Alanine Aminotransferase 98 IU/L (<50); Albumin 4.1 g/dL (3.5-5.0); Albumin Globulin Ratio 1.2 (1.0-2.8); Alkaline Phosphatase 57 U/L (38-126); Aspartate Aminotransferase 63 IU/L (17-59); BUN Creatinine Ratio 16.3 (6-22); Bilirubin Total 1.5 mg/dL (0.2-1.3); Blood Urea Nitrogen 13 mg/dL (9-20); Calcium 8.9 mg/dL (8.4-10.2); Carbon Dioxide 19 mmol/L (22-32); Chloride 99 mmol/L (98-107); Estimated Glomerular Filt Rate > 60.0 mL/min (>60); Globulin 3.5 g/dL (1.7-4.1); Glucose 141 mg/dL (80-110); HEMOLYSIS < 15 (0-50); Lipase 66 U/L (23-300); Potassium 3.9 mmol/L (3.4-5.1); Sodium 128 mmol/L (137-145); Total Protein 7.6 g/dL (6.3-8.2)
[2021-05-28 07:19] LABS: Lactate (Lactic Acid) 0.8 mmol/L (0.7-2.1)
[2021-05-28] MEDS: SODIUM CHLORIDE 0.9% 1,000 ML 1000 ML IV (07:27)
[2021-05-28] MEDS: ACETAMINOPHEN 325 MG TABLET 650 MG PO (07:29)
[2021-05-28] MEDS: cefTRIAXone 1,000 MG in SODIUM CHLORIDE 0.9% 100 ML 200 ML IV (07:30)
[2021-05-28 08:52] LABS: COVID19 -Nasal RAPID Negative (Negative)
[2021-05-28] MEDS: VANCOMYCIN 2,000 MG/400 ML PIGGYBACK 200 MG IV (09:44)
[2021-05-28 10:25] LABS: RBC Urine 1-5/HPF (0-5/HPF)
[2021-05-28 10:26] LABS: Bacteria Urine Few (2-10); Culture Indicated Urine Cult Not Indicated; Granular Casts Urine 0-1/LPF; Hyaline Casts Urine 0-1/LPF; Mucus Urine 2+ (Negative); Squamous Epithelial Cell Urine 0-1 /HPF (0-5/HPF); WBC Urine 1-5/HPF (0-5/HPF)
== END 2021-05-28 12:38 | disposition home or self-care (01) ==
PROVIDERS: Emergency Medicine; Emergency Provider Emergency Medicine; PCP Physician Assistant Medical
DX: J18.9 Pneumonia, unspecified organism (principal); Z87.891 Personal history of nicotine dependence; Z20.822 Contact with and (suspected) exposure to COVID-19
CPT/HCPCS: 36415; 71045; 80053; 81003; 81015; 83605; 83690; 84145; 85025; 87040; 87086; 87635; 93005; 96365; 96366; 96367; 99284; 99285; C9803; J0696

== ENCOUNTER → 2023-02-19 07:43 | Outpatient (CLI) | payer MEDICARE, OTHER, SELFPAY ==
--- NOTE | 2023-02-19 07:45 | DI.US.S_ITS ---
PROCEDURE: US SCROTUM INDICATIONS: HISTORY OF SCROTAL CYST W/UNKNOWN ETIOLOGY. NEW RECENT PAIN. TECHNIQUE: Real-time scanning was performed of the scrotum and testicles, with image documentation. Color and pulse Doppler interrogation was performed of both testicles. COMPARISON: [facility], , US SCROTUM, 02/19/2021, 10:31. FINDINGS: Right: Testicle is normal in size at 4.0 x 3.7 x 2.3 cm, and homogenous in echotexture. Epididymis is normal in overall size and morphology. There is a small epididymal head simple cyst measuring 0.2 cm. No hydrocele or varicoceles. Overlying scrotal skin is normal in thickness. Previously visualized large right extratesticular septated cyst is no longer visualized. Left: Testicle is normal in size at 3.6 x 3.1 x 2.0 cm, and homogeneous in echotexture. Epididymis is normal in overall size and morphology. There is a small epididymal head simple cyst measuring up to 0.3 cm. No hydrocele or varicoceles. Overlying scrotal skin is normal in thickness. Doppler: Color and pulse Doppler demonstrate normal and symmetric arterial flow in both testicles. IMPRESSION: Previously seen large right extratesticular.septated cyst is no longer visualized. No hydrocele or varicocele visualized. Small bilateral epididymal head simple cysts. Dictated by: Bebe Ortiz M.D. on 02/19/2023 at 14:34 Approved by: Bebe Ortiz M.D. on 02/19/2023 at 14:38
== END ==
PROVIDERS: PCP Physician Assistant Medical; Referring Provider Urology; Visit Provider Urology
DX: N43.41 Spermatocele of epididymis, single (principal)
CPT/HCPCS: 76870; 93975